=== PATIENT | female | born 1955 ===

== ENCOUNTER → 2016-06-13 | Outpatient (CLI) | payer BC ==
[~2016-06-13] MED LIST: ACET-820; ACET325T10; ATEN-36 PO; CROM40SP NS; FLUT16SP12 NS; KETO5DRO OP; LOVA20TA71 PO; MUCINEX; MULT-806 PO; NAPR-561 PO; NORT25CA79 PO; P EP PO; SIMETHICONE; SODI45SP35 NS; STAY AWAKE; [UNRECOGNIZED DRUG - CODE] PO
== END ==
LOC: WC.BC 10:37
DX: Z12.31 Encounter for screening mammogram for malignant neoplasm of breast (principal)
CPT/HCPCS: 77063; G0202